=== PATIENT | female | born 1980 | race American Indian/Alaskan Native ===

== ENCOUNTER 2019-05-02 15:30 | Inpatient (IN) | payer MEDICAID ==
[2019-05-02] MEDS ORDERED: ACETAMINOPHEN 325 MG TAB PO PRN (15:42)
[2019-05-02] MEDS ORDERED: MAGNESIUM HYDROXIDE (MOM) ORAL LIQD UDC PO PRN (15:42)
[2019-05-02] MEDS ORDERED: PROMETHAZINE 25 MG TAB PO PRN (15:42)
[2019-05-02] MEDS ORDERED: ONDANSETRON 4 MG/2 ML INJ IV PRN (15:42)
[2019-05-02] MEDS ORDERED: WITCH HAZEL/ GLYCERIN PAD TP PRN (15:42)
[2019-05-02] MEDS ORDERED: LANOLIN/ZINC/DIMETHICONE (LANSINOH) 7 GM TP PRN (15:42)
[2019-05-02] MEDS ORDERED: diphenhydrAMINE 25 MG CAP PO PRN (15:42)
--- NOTE | 2019-05-02 15:49 | History and Physical Report ---
History of Present Illness Date of examination: 05/02/19 (pt del @ Home) Date of admission: 05/02/19 15:30 Chief complaint: Del at home, limited PNC History of present illness: EDC Confirmation: 06/01/2019 Past History : 7 Term Births: 5 Premature Births: 0 Living Children: 5 Para: 5 Mult. Births: 0 Prev : 0 Prev. attempt? 0 Aborta: 1 Elect. Ab: 1 Spont. Ab: 0 Ectopics: 0 # 1 Delivery date: 02/03/2006 Weeks Gestation: 40.4 Delivery type: Anesthesia type: epidural Delivery location: [facility] [place] Sex: Female weight: 6-6 Name: Hilary # 2 Delivery date: 2009 Delivery type: EAB # 3 Delivery date: 07/28/2013 Weeks Gestation: 41 Delivery type: Delivery location: [facility] [place] Infant Sex: Male weight: 7-6 Name: Robert Comments: IOL posdates # 4 Delivery date: 11/03/2014 Weeks Gestation: 39 labor: no Delivery type: Hours of labor: 4 Anesthesia type: none Delivery location: [facility] [place] Sex: Female weight: 5-4 Name: Max # 5 Delivery date: 2015 Weeks Gestation: 40 Delivery type: Sex: Female Comments: delivered at home # 6 Delivery date: 2016 Weeks Gestation: 40 Delivery type: Infant Sex: Male Comments: delivered in ambulance Risk Factors: Smoked Tobacco Use: Former smoker Cigarettes: Yes -- 5 cigs/day pack(s) per day,Smokeless Tobacco Use: Never Counseled to quit/cut down: yes Tobacco Use Comments: stopped in 01/2019 Passive smoke exposure: no Drug use: no HIV high-risk behavior: no Alcohol use: yes Type: occ Comments: stopped with preg Exercise: yes Times per week: 7 Type of Exercise: walking Seatbelt use: 100 % Dietary Counseling: pn yes Past Medical History: Reviewed history from 05/10/2014 and no changes required: Depression- no meds Past Surgical History: Reviewed history from 11/14/2015 and no changes required: Tonsillectomy D&C: Social History: Adriana Unemploed Patient is Smoking History: Patient is a former smoker. Past Medical History Abnormal PAP: negative CUAUHTEMOC Exposure: negative Infertility: negative Uterine Anomaly: negative Uterine Surgery (not C/S): negative Other Gynecologic Problems: negative Social Hx: Adriana Unemploed Patient is Smoking History: Patient is a former smoker. Infection History Hx of STD: none HIV Risk Eval: no Personal hx. 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 Genetic History ADVANCED MATERNAL AGE Congenital Heart Defect: Mom: no Dad: no Angela Disease: Mom: no Dad: no Thalassemia Mom: no Dad: no Neural Tube Defect Mom: no Dad: no Down's Syndrome Mom: no Dad: no Jeremías-Sachs Mom: no Dad: no Sickle Cell Disease/Trait Mom: no Dad: no Hemophilia Mom: no Dad: no Muscular Dystrophy Mom: no Dad: no Cystic Fibrosis Mom: no Dad: no [place] Chorea Mom: no Dad: no Mental Retardation Mom: no Dad: no Fragile X Mom: no Dad: no Other Genetic/Chromosomal Disorder Mom: no Dad: no Child w/other defect Mom: no Dad: no Past History Past Medical History: other (see HPI) Past Surgical History: other (see HPI) [employer] History: other (see HPI) Family/Genetic History: other (see HPI) - Obstetrical History Expected Date of Delivery: 06/01/19 Actual Gestation: 35 Week(s) 5 Day(s) : 7 Para: 5 Hx # Term Pregnancies: 5 Number of Pregnancies: 0 Spontaneous Abortions: 0 Induced : 1 Number of Living Children: 5 Medications and Allergies Active Meds: Active Medications Acetaminophen (Tylenol) 650 mg PO Q4H PRN PRN Reason: Pain MILD(1-3)/Fever >100.5/SAWYER Bisacodyl (Dulcolax) 10 mg IN BID PRN PRN Reason: Constipation Diphenhydramine HCl (Benadryl) 25 mg PO Q6H PRN PRN Reason: Itching Diphtheria/Tetanus/Acell Pertussis (Boostrix) 0.5 ml IM .ONCE ONE Stop: 05/03/19 15:43 Ferrous Sulfate (Feosol) 325 mg PO BID PRAVEEN Oxytocin/Sodium Chloride (Pitocin/Ns 20 Unit/1000ml Drip) 20 units in 1,000 mls @ 250 mls/hr IV DIRECT PRAVEEN Ibuprofen (Ibuprofen) 800 mg PO Q6H PRAVEEN Magnesium Hydroxide (Milk Of Magnesia) 30 ml PO HS PRN PRN Reason: Constipation Multi-Ingredient Ointment (Lansinoh) 1 applic TP PRN PRN PRN Reason: Sore Nipples Ondansetron HCl (Zofran) 4 mg IV Q8H PRN PRN Reason: Nausea And Vomiting Promethazine HCl (Phenergan) 25 mg PO Q6H PRN PRN Reason: Nausea And Vomiting Sodium Chloride (Sodium Chloride Flush Syringe 10 Ml) 10 ml IV PRN NR Witch Nano/Glycerin (Tucks Pad) 1 each TP PRN PRN PRN Reason: Hemorrhoid/cleansing/soothing Review of Systems All systems: negative - Vital Signs Vital signs: Vital Signs Pulse BP 64 114/68 05/02/19 15:33 05/02/19 15:33 Temp Pulse Resp BP Pulse Ox 64 114/68 05/02/19 15:33 05/02/19 15:33 - Physical Exam Breasts: Positive: normal Cardiovascular: Regular rate Lungs: Positive: Clear to auscultation, Normal air movement Abdomen: Positive: normal appearance, soft Genitourinary (Female): Positive: normal external genitalia, normal perenium Vulva: both: normal Vagina: Positive: normal moisture Uterus: Positive: normal size, normal contour Results All other labs normal. Assessment and Plan patient arrived delivered at home via EMS complicated by limited care, late to care @ 28 weeks. pt had 2 visits in our office. admission orders in EMR - Patient Problems (1) (normal spontaneous vaginal delivery) Current Visit: Yes Status: Acute Plan to address problem: pathway (2) 35 weeks gestation of Current Visit: Yes Status: Acute
--- NOTE | 2019-05-02 15:56 | Procedure Note ---
OB Delivery Note - Delivery Date of Delivery: 05/02/19 (home delivery @ 35+5) Player Piano Technician: HANNAH ZARATE Estimated blood loss: 300cc - Vaginal Delivery presentation: vertex Intrapartum events: labor-<37 weeks, precipitous labor- <3hr Delivery induction: none Delivery monitor: none Route of delivery: Delivery placenta: spontaneous Delivery cord: 3 umbilical vessels Delivery laceration: none Anesthesia: none Delivery comments: patient delivered at home with EMS present approx 3 hours after ctx started. perineum intact. lochia scant. Fundus firm. mother and baby stable. - Infant A at 1 minute: 9 at 5 minutes: 9 (assigned by EMS) Infant Gender: Male (4#15)
[2019-05-02] MEDS ORDERED: OXYTOCIN 20 UNIT/1000ML DRIP 20 UNITS/1,000 ML BAG IV SCH (16:00)
[2019-05-02] MEDS ORDERED: AZITHROMYCIN 250 MG TAB PO ONE ×2 (16:03→19:00)
[2019-05-02] MEDS ORDERED: metroNIDAZOLE 500 MG TAB PO ONE (16:05)
[2019-05-02] MEDS: IBUPROFEN 800 MG TAB PO PRN (16:41)
[2019-05-02 19:10] LABS: Hematocrit 35.9 % (30.3-42.9); Hemoglobin 12.4 gm/dl (10.1-14.3); Mean Corpuscular HGB Conc 34 % (30-34); Mean Corpuscular Volume 89 fl (79-97); Platelet Count 160 K/mm3 (140-440); Red Blood Count 4.02 M/mm3 (3.65-5.03)
--- NOTE | 2019-05-02 19:11 | Event Note ---
Date: 05/02/19 + trich and + CT noted from office, no evidence of treatment. Pt informed of results - treatment ordered and given. NICU made aware.
[2019-05-02] MEDS ORDERED: FERROUS SULFATE 325 MG TAB PO SCH (22:00)
[2019-05-03] MEDS: IBUPROFEN 800 MG TAB PO PRN ×2 (00:30→19:22)
--- NOTE | 2019-05-03 06:48 | Discharge Summary ---
Providers - Providers Date of Admission: 05/02/19 15:30 Date of discharge: 05/03/19 (pt req d/c today Baby in NICU) Attending physician: CHANDRA HURST Primary care physician: CHANDRA HURST Hospitalization Reason for admission: other (delivered at home; NB is in NICU) Delivery: Episiotomy: none Laceration: none Other procedures: none complications: none baby: male (NICU) Hospital course: pt presented to L&D after uncomplicated delivery @ home Pt resting No c/o voiced Desires d/c today if possible. Pt is aware NB will not be d/c today. VSS FF below umb Lochia small Perineum intact. H&H pending No s/sx of anemia. Doing well s/p vaginal delivery @ home. Pt has received her tx for both chlamydia and Trich. P: d/c today with instructions RTO 4 weeks Pt desires DEPO Has planned BTL to be done. Condition at discharge: Good Disposition: DC-01 TO HOME OR SELFCARE - Discharge Diagnoses (1) (normal spontaneous vaginal delivery) Status: Acute Comment: RTO 4 weeks PP Care Plan - Discharge Medications Prescriptions: Lidocain2.5%/Prilocai2.5% [Emla] 5 gm TP ONCE PRN #1 tube PRN Reason: Pain Ibuprofen [Motrin 800 MG tab] 800 mg PO Q8HR PRN #30 tablet PRN Reason: Pain - Provider Discharge Summary Activity: routine, no sex for 6 weeks, no heavy lifting 4 weeks, no strenuous exercise Diet: routine Instructions: routine Additional instructions: [] Smoking cessation referral if applicable(refer to patient education folder for contact #) [] Refer to [facility] Booklet Call your doctor immediately for: * Fever > 100.5 * Heavy vaginal bleeding ( >1 pad per hour) * Severe persistent headache * Shortness of breath * Reddened, hot, painful area to leg or breast * Drainage or odor from incision. * Keep incision clean and dry at all times and follow doctor's instructions regarding bathing/showering - Follow up plan Follow up: CHANDRA HURST MD [Primary Care Provider] - 06/02/19 (Congratulations! Please call [phone] to schedule your visit in 4 weeks. Call to schedule your son's circumcision, if desired, once he is discharged. Bring the EMLA cream with you to his visit. Do NOT use at home. Motrin/ibuprofen for cramping/pain. Call with concerns.)
[2019-05-03] MEDS ORDERED: medroxyPROGESTERone ACETATE 150 MG/ML SYRINGE IM NR (07:30)
[2019-05-03 09:09] LABS: Hematocrit 33.1 % (30.3-42.9); Hemoglobin 11.4 gm/dl (10.1-14.3)
[2019-05-03] MEDS ORDERED: PRENATAL VIT27-FE FUMARATE-FOLIC ACID VIT TAB PO SCH (10:00)
[2019-05-03] MEDS ORDERED: TETANUS,DIPH,PERTUSS(ACELL) VACCINE 0.5 ML SYRINGE IM ONE (15:42)
[2019-05-03 17:58] VITALS: BP 102/55
== END 2019-05-03 19:40 | disposition home or self-care (01) | DRG 776 ==
LOC: LD 15:30 → OB 17:29
PROVIDERS: ADMIT Obstetrics & Gynecology; ATTEND Obstetrics & Gynecology
PROC: 3E0234Z Introduction of Serum, Toxoid and Vaccine into Muscle, Percutaneous Approach (ICD-10-PCS; principal; 2019-05-03)
DX: Z39.0 Encounter for care and examination of mother immediately after delivery (principal); Z23 Encounter for immunization
CPT/HCPCS: 36415; 85014; 85018; 85027; 86592; 86850; 86900; 86901; 87806; G0378; J1050; J2590